=== PATIENT | female | born 1985 | race Caucasian/White ===

== ENCOUNTER 2016-09-22 08:20 | Emergency (ER) | payer OTHER ==
[~2016-09-22] VITALS: Ht 165.1 cm; Wt 86.0 kg
[2016-09-22] MEDS ORDERED: RAPID SEQUENCE KIT [RSI] 1 EACH KIT ONE ×2 (10:03)
[2016-09-22] MEDS ORDERED: SUCCINYLCHOLINE CHLORIDE 20 MG/ML 10 ML VIAL ONE (10:03)
[2016-09-22 10:41] VITALS: BP 110/70
== END 2016-09-22 11:54 | disposition home or self-care (01) ==
LOC: EMS 08:25
DX: S86.912A Strain of unspecified muscle(s) and tendon(s) at lower leg level, left leg, initial encounter (principal); X58.XXXA Exposure to other specified factors, initial encounter; Y93.66 Activity, soccer; Y92.89 Other specified places as the place of occurrence of the external cause; Y99.8 Other external cause status
CPT/HCPCS: 81025; 93971; 99284; J0330